=== PATIENT | male | born 1955 ===

== ENCOUNTER 2018-12-07 05:46 | Day surgery (SDC) | payer OTHER ==
[2018-12-06 10:37] VITALS: BMI 29.0
[2018-12-07 07:07] VITALS: RESP 19; O2SAT 98
[2018-12-07] MEDS ORDERED: Propofol 10 mg/ml Inj (20 ML) ONE (08:01)
[2018-12-07] MEDS ORDERED: Lactated Ringer's 500 ML IV ONE ×2 (08:11)
[2018-12-07 09:37] VITALS: BP 135/72; PULSE 87; TEMP 97.8
== END 2018-12-07 09:38 | disposition home or self-care (01) ==
LOC: C.ENDO 05:46
PROVIDERS: ATTEND Internal Medicine Gastroenterology
DX: D12.2 Benign neoplasm of ascending colon (principal); K64.8 Other hemorrhoids; K64.0 First degree hemorrhoids
CPT/HCPCS: 45380; 45385; 87045; 87177; 87209; 87230; 88305; J2704; J7120